=== PATIENT | male | born 1975 | race Two or more races ===

== ENCOUNTER 2019-08-05 18:47 | Emergency (ER) | payer SELFPAY ==
[2019-08-05 19:13] VITALS: BP 129/75
[2019-08-05] MEDS ORDERED: NORMAL SALINE 1000 ML 1,000 ML IV ONE (19:42)
--- NOTE | 2019-08-05 19:44 | ER Document Report ---
ED Medical Screen (RME) - General Chief Complaint: Abdominal Pain Stated Complaint: ABDOMINAL PAIN Time Seen by Provider: 08/05/19 19:34 Notes: Patient is a 43-year-old male who presents emergency department with a chief complaint of abdominal pain. His pain is at his mid upper abdomen. He was diagnosed with a fatty umbilical hernia 3 years ago and states that yesterday he feels the pain has gotten worse. Patient admits to drinking 2 beers a day on a regular basis. Denies any other past medical history. Patient is a current everyday smoker. Exam: Firm mid upper abdomen. I have greeted and performed a rapid initial assessment of this patient. A comprehensive ED assessment and evaluation of the patient, analysis of test results and completion of medical decision making process will be conducted by an additional ED providers. TRAVEL OUTSIDE OF THE [place] IN LAST 30 DAYS: No - Related Data Allergies/Adverse Reactions: No Known Allergies Allergy (Unverified 11/24/15 21:08) Past Medical History - Social History Frequency of alcohol use: many beers a day Past Surgical History: Reports: Hx Testicular Surgery - torsion - Immunizations Immunizations up to date: Yes Hx Diphtheria, Pertussis, Tetanus Vaccination: Yes Physical Exam - Vital signs Vitals: Temp Pulse Resp BP Pulse Ox 99.1 F 70 20 129/75 H 98 08/05/19 19:12 08/05/19 19:12 08/05/19 19:12 08/05/19 19:12 08/05/19 19:12 Course - Vital Signs Vital signs: Temp Pulse Resp BP Pulse Ox 99.1 F 70 20 129/75 H 98 08/05/19 19:12 08/05/19 19:12 08/05/19 19:12 08/05/19 19:12 08/05/19 19:12
== END 2019-08-05 21:20 | disposition left against medical advice (07) ==
LOC: ER 18:47
DX: R10.9 Unspecified abdominal pain (principal); F17.200 Nicotine dependence, unspecified, uncomplicated
CPT/HCPCS: 99283

== ENCOUNTER 2019-08-06 10:44 | Emergency (ER) | payer BC ==
--- NOTE | 2019-08-06 11:11 | ER Document Report ---
ED Medical Screen (RME) - General Mode of Arrival: Ambulatory Information source: Patient TRAVEL OUTSIDE OF THE [place] IN LAST 30 DAYS: No - General Stated Complaint: ABDOMINAL PAIN Time Seen by Provider: 08/06/19 11:07 Notes: This 43-year-old male presents emergency department with complaints of abdominal pain. Reports he has a umbilical hernia. He is worried that it may has i ncreased in size since Saturday. Patient reports it was a size of a dime 3 years ago now complains of increased pain firmness in his abdomen. Patient declines all lab work at this time. Reports he just wants an ultrasound. I have greeted and performed a rapid initial assessment of this patient. A comprehensive ED assessment and evaluation of the patient, analysis of test results and completion of the medical decision making process will be conducted by additional ED providers. Dictation of this chart was performed using voice recognition software; therefore, there may be some unintended grammatical errors. (BRUCE GALLO) - Related Data Allergies/Adverse Reactions: No Known Allergies Allergy (Verified 08/06/19 11:04) Past Medical History Past Surgical History: Reports: Hx Testicular Surgery - torsion - Immunizations Immunizations up to date: Yes Hx Diphtheria, Pertussis, Tetanus Vaccination: Yes Physical Exam - Vital signs Vitals: Temp Pulse Resp BP Pulse Ox 98.0 F 65 14 120/79 100 08/06/19 10:47 08/06/19 10:47 08/06/19 10:47 08/06/19 10:47 08/06/19 10:47 Course - Vital Signs Vital signs: Temp Pulse Resp BP Pulse Ox 98.0 F 65 14 120/79 100 08/06/19 10:47 08/06/19 10:47 08/06/19 10:47 08/06/19 10:47 08/06/19 10:47 Doctor's Discharge - Discharge Clinical Impression: Hernia Condition: Stable Disposition: HOME, SELF-CARE Instructions: Abdominal Pain ([facility])
--- NOTE | 2019-08-06 12:53 | RADIOLOGY REPORT (SQ) ---
EXAM DESCRIPTION: U/S ABDOMEN LIMITED W/O DOP COMPLETED DATE/TIME: 08/06/2019 11:47 am REASON FOR STUDY: eval umbilical hernia COMPARISON: None. TECHNIQUE: Dynamic and static grayscale images acquired of the abdomen and recorded on PACS. Additio nal selected color Doppler and spectral images recorded. LIMITATIONS: None. FINDINGS: Limited sonographic imaging is performed in the area of concern superior to the umbilicus. No ventral hernia is seen. No mass or fluid collection is present. IMPRESSION: No significant finding is present in the area of concern. TECHNICAL DOCUMENTATION: JOB ID: [id number] [employer]- All Rights Reserved Reading location - IP/workstation name: [email or web address]
--- NOTE | 2019-08-06 14:06 | ER Document Report ---
ED General - General Chief Complaint: Abdominal Pain Stated Complaint: ABDOMINAL PAIN Time Seen by Provider: 08/06/19 11:07 Primary Care Provider: [facility] [Provider Group] - Follow up as needed Mode of Arrival: Ambulatory TRAVEL OUTSIDE OF THE [place] IN LAST 30 DAYS: No - HPI Patient complains to provider of: hernia Notes: Patient presents with umbilical hernia. Was diagnosed 3 years ago with this hernia. Is never followed up with surgery. He thinks it is gotten bigger. Patient denies any nausea vomiting constipation or abdominal pain to me. Denies fever chills or other symptoms. - Related Data Allergies/Adverse Reactions: No Known Allergies Allergy (Verified 08/06/19 11:04) Past Medical History - General Information source: Patient - Social History Smoking Status: Never Smoker Chew tobacco use (# tins/day): No Frequency of alcohol use: None Drug Abuse: Marijuana Family History: Reviewed & Not Pertinent Patient has suicidal ideation: No Patient has homicidal ideation: No Past Surgical History: Reports: Hx Testicular Surgery - torsion - Immunizations Immunizations up to date: Yes Hx Diphtheria, Pertussis, Tetanus Vaccination: Yes Review of Systems - Review of Systems Notes: REVIEW OF SYSTEMS: CONSTITUTIONAL: -fevers, -chills EENT: -eye pain, -difficulty swallowing, -nasal congestion CARDIOVASCULAR: -chest pain, -syncope. RESPIRATORY: -cough, -SOB GASTROINTESTINAL: -abdominal pain, -nausea, -vomiting, -diarrhea GENITOURINARY: -dysuria, -hematuria MUSCULOSKELETAL: -back pain, -neck pain SKIN: -rash or skin lesions. HEMATOLOGIC: -easy bruising or bleeding. LYMPHATIC: -swollen, enlarged glands. NEUROLOGICAL: -altered mental status or loss of consciousness, -headache, - neurologic symptoms PSYCHIATRIC: -anxiety, -depression. ALL OTHER SYSTEMS REVIEWED AND NEGATIVE. Physical Exam - Vital signs Vitals: Temp Pulse Resp BP Pulse Ox 98.0 F 65 14 120/79 100 08/06/19 10:47 08/06/19 10:47 08/06/19 10:47 08/06/19 10:47 08/06/19 10:47 - Notes Notes: PHYSICAL EXAMINATION: GENERAL: Well-appearing, well-nourished and in no acute distress. HEAD: Atraumatic, normocephalic. EYES: Pupils equal round and reactive to light, extraocular movements intact, sclera anicteric, conjunctiva are normal. ENT: nares patent, oropharynx clear without exudates. Moist mucous membranes. NECK: Normal range of motion, supple without lymphadenopathy LUNGS: Breath sounds clear to auscultation bilaterally and equal. No wheezes rales or rhonchi. HEART: Regular rate and rhythm without murmurs ABDOMEN: Soft, nontender, normoactive bowel sounds. No guarding, no rebound. No masses appreciated. EXTREMITIES: Normal range of motion, no pitting or edema. No cyanosis. NEUROLOGICAL: Cranial nerves grossly intact. Normal speech, normal gait. Normal sensory and motor exams. PSYCH: Normal mood, normal affect. SKIN: Warm, Dry, normal turgor, no rashes or lesions noted. Course - Re-evaluation Re-evalutation: 08/06/19 14:14 [place] 43-year-old male presents with a known hernia. Abdominal ultrasound finds no obstruction or other acute process. Patient's physical exam is reassuring vital signs are stable within normal limits. Patient declines any blood work at this time. Will be given referral to outpatient surgical clinic. Given strict return precautions if anything should worsen or change please return - Vital Signs Vital signs: Temp Pulse Resp BP Pulse Ox 98.0 F 65 14 120/79 100 08/06/19 10:47 08/06/19 10:47 08/06/19 10:47 08/06/19 10:47 08/06/19 10:47 Discharge - Discharge Clinical Impression: Hernia Condition: Stable Disposition: HOME, SELF-CARE Instructions: Abdominal Pain ([facility]), Hernia ([facility]) Referrals: [facility] [Provider Group] - Follow up as needed
[2019-08-06 14:16] VITALS: BP 123/75
== END 2019-08-06 14:16 | disposition home or self-care (01) ==
LOC: ER 10:44
DX: K42.9 Umbilical hernia without obstruction or gangrene (principal)
CPT/HCPCS: 76705

== ENCOUNTER → 2019-08-18 | Outpatient (CLI) | payer BC ==
--- NOTE | 2019-08-18 15:35 | RADIOLOGY REPORT (SQ) ---
EXAM DESCRIPTION: BARIUM SWALLOW ESOPHAGUS COMPLETED DATE/TIME: 08/18/2019 9:39 am REASON FOR STUDY: (R10.13)EPIGASTRIC PAIN;(K42.9)UMBILICAL HERNIA WITHOUT OBSTRUCTION OR GANG K42.9 UMBILICAL HERNIA WITHOUT OBSTRUCTION OR GANGRENE R10.13 EPIGASTRIC PAIN COMPARISON: None. TECHNIQUE: Under fluoroscopic guidance, patient ingested effervescent granules followed by thick and thin barium. Fluoroscopic spot images and routine radiographic images acquired and stored on PACS. 12 MM BARIUM TABLET GIVEN: Tablet passed easily through the esophagus and into the stomach without de lay. LIMITATIONS: None. FLUOROSCOPY TIME: FLUORO TIME: 1.30 minutes 4 images saved to PACS. FINDINGS: NEUROMUSCULAR COORDINATION OF SWALLOW: Normal. No aspiration. ESOPHAGEAL MOTILITY: Normal peristalsis. No esophageal spasm. ESOPHAGEAL MUCOSA: Normal mucosa without masses or ulceration. GASTRO-ESOPHAGEAL JUNCTION: No hiatal hernia or reflux. NON-GI TRACT STRUCTURES: No significant finding. OTHER: No other significant finding. IMPRESSION: NORMAL DOUBLE CONTRAST BARIUM SWALLOW. RECOMMENDATION: None COMMENT: None Quality ID [id number]: Final reports for procedures using fluoroscopy that document radiation exposure golden lucía, or exposure time and number of fluorographic images (if radiation exposure indices are not avail able) TECHNICAL DOCUMENTATION: JOB ID: [id number] [employer]- All Rights Reserved Reading location - IP/workstation name: [email or web address] [id number]
== END ==
LOC: RAD 08:55
PROVIDERS: ATTEND Surgery
DX: K42.9 Umbilical hernia without obstruction or gangrene (principal); R10.13 Epigastric pain
CPT/HCPCS: 74220